=== PATIENT | female | born 1950 | race Caucasian/White ===

== ENCOUNTER 2021-09-15 08:38 | Outpatient (CLI) | payer OTHER ==
[2021-09-15] MEDS ORDERED: GASTROGRAFIN 120 ML ONE (09:04)
[2021-09-15] MEDS ORDERED: DIATR MEGLU/DIATRIZ SOD 30 ML SOLUTION PO ONE (09:17)
== END 2021-09-15 20:38 | disposition home or self-care (01) ==
LOC: SCT 08:38
PROVIDERS: ATTEND Specialist
DX: R16.0 Hepatomegaly, not elsewhere classified (principal); I70.0 Atherosclerosis of aorta; R19.7 Diarrhea, unspecified; K63.89 Other specified diseases of intestine; M47.819 Spondylosis without myelopathy or radiculopathy, site unspecified
CPT/HCPCS: 74176; 76376; Q9964; Q9963

== ENCOUNTER 2023-03-05 06:56 | Day surgery (SDC) | payer OTHER ==
[~2023-03-05] VITALS: Ht 162.6 cm; Wt 62.6 kg
[2023-03-05] MEDS ORDERED: MIDAZOLAM HCL 5 MG/5 ML VIAL ONE ×2 (08:45→10:47)
[2023-03-05] MEDS ORDERED: MEPERIDINE 100 MG INJ. 100 MG/ML VIAL ONE (08:45)
[2023-03-05 14:27] VITALS: O2SAT 98
[2023-03-05 15:55] VITALS: BP_SYST 131; PULSE 88; RESP 19
== END 2023-03-05 11:40 | disposition home or self-care (01) ==
LOC: SDS 06:56 → SMU 06:58 → SDS 11:40
PROVIDERS: ATTEND Internal Medicine Gastroenterology
DX: R13.10 Dysphagia, unspecified (principal); K29.50 Unspecified chronic gastritis without bleeding; K52.9 Noninfective gastroenteritis and colitis, unspecified; K50.90 Crohn's disease, unspecified, without complications; R63.4 Abnormal weight loss; K21.9 Gastro-esophageal reflux disease without esophagitis; K22.2 Esophageal obstruction; E11.9 Type 2 diabetes mellitus without complications; Z86.73 Personal history of transient ischemic attack (TIA), and cerebral infarction without residual deficits; Z88.1 Allergy status to other antibiotic agents; Z79.899 Other long term (current) drug therapy; Z79.4 Long term (current) use of insulin
CPT/HCPCS: 45340; 45331; 43239; 43248; 99152; 87081; 82962; 36415; 88305; 88312; 88313; 99153; G0378; J2250; J2175; C1769